=== PATIENT | female | born 1985 | race Caucasian/White ===

== ENCOUNTER 2017-10-19 16:14 | Outpatient (CLI) | payer BC ==
[2017-10-19 17:37] LABS: APPEARANCE,URINE CLEAR; BILIRUBIN,URINE NEGATIVE (NEGATIVE); COLOR,URINE STRAW; GLUCOSE, URINE NEGATIVE (NEGATIVE); KETONES,URINE NEGATIVE (NEGATIVE); LEUKOCYTE ESTERASE,URINE NEGATIVE (NEGATIVE); NITRITE,URINE NEGATIVE (NEGATIVE); PROTEIN,URINE NEGATIVE (NEGATIVE); URINE SPECIFIC GRAVITY 1.005; UROBILINOGEN,URINE NEGATIVE mg/dL (<2.0)
[2017-10-19 17:44] LABS: URINE AMPHETAMINES SCREEN NEGATIVE; URINE BARBITURATES SCREEN NEGATIVE; URINE BENZODIAZEPINES SCREEN NEGATIVE; URINE COCAINE SCREEN NEGATIVE; URINE MARIJUANA (THC) SCREEN NEGATIVE; URINE METHADONE SCREEN NEGATIVE; URINE PHENCYCLIDINE SCREEN NEGATIVE
--- NOTE | 2017-10-19 18:29 | L&D Progress Notes ---
PROGRESS NOTES Datetime Report Generated by CPN: 10/19/2017 18:29 PROGRESS NOTE Comment: VE: soft, closed, high, Cat 1 strip, feeling better, no uc's. at work today and felt funny, faint, concerned and came here. Works here un [employer], lives in [place], goes to Dr. in [place] + FM Keep appt with Dr. on [place] [facility] S_S to report SIGNATURE SIGNATURE: [id number] Assignment: Nydia Perez MD Signature: with User ID: [email or web address] : with User ID: [email or web address]
--- NOTE | 2017-10-19 19:35 | Non Stress Test Report ---
Non Stress Test Datetime Report Generated by CPN: 10/19/2017 19:35 DEMOGRAPHIC EGA NST: 33.4 INDICATION Indication for Study: Ordered by Provider MONITORING Monitor Explained: Monitor Explained; Test Explained; Patient Verbalized Understanding Time on Monitor: 10/19/2017 17:10 Time off Monitor: 10/19/2017 18:16 NST Duration: 66 NST INTERVENTIONS NST Interventions: PO Hydration Physician Notified NST: Dr. Perez and JHernan Zuniga, CNM BABY A: [id number] BABY A Movement : Present Contraction Frequency : none FHR Baseline : 130 Accelerations : 15X15 Decelerations : None Variability : Moderate 6-25bpm NST Review: Meets Criteria for Reactive NST NST Review and Verified By : SWAPNIL BARAHONA Results: Reactive NST REPORT Report Trigger: Send Report
== END 2017-10-19 18:45 | disposition home or self-care (01) ==
LOC: LC 16:14
PROVIDERS: ATTEND Student in an Organized Health Care Education/Training Program
PROC: 4A1HXCZ Monitoring of Products of Conception, Cardiac Rate, External Approach (ICD-10-PCS; principal; 2017-10-19)
DX: O47.03 False labor before 37 completed weeks of gestation, third trimester (principal); Z3A.33 33 weeks gestation of pregnancy
CPT/HCPCS: 59025; 80307; 81001